=== PATIENT | female | born 1960 | race Caucasian/White ===

== ENCOUNTER → 2022-06-11 | Outpatient (CLI) | payer BC ==
[2022-06-11 15:00] LABS: Basophils # (A) 0.03 X 10*3/uL (0.00-0.10); Basophils % (A) 0.7 %; Eosinophils # (A) 0.18 X 10*3/uL (0.04-0.35); Eosinophils % (A) 4.1 %; HCT 44.7 % (37.2-46.3); HGB 14.8 g/dL (12.0-15.0); Immature Grans, Automated 0.2 %; Lymphocytes # (A) 1.39 X 10*3/uL (0.90-5.00); Lymphocytes % (A) 31.3 %; MCH 31.8 pg (27.0-32.0); MCHC 33.1 g/dL (32.0-37.0); MCV 96.1 fL (80.0-97.0); Mean Platelet Volume 10.6 fL (9.5-12.2); Monocytes % (A) 11.3 %; NRBC Per 100 WBC 0 /100 WBCS (0.0-0.0); Neutrophils # (A) 2.33 X 10*3/uL (1.80-7.70); Neutrophils % (A) 52.4 %; Platelet Count 248 X 10*3/uL (140-440); RBC 4.65 X 10*6/uL (4.10-5.20); RDW 13.2 % (11.5-14.5); WBC 4.44 X 10*3/uL (4.50-10.00)
[2022-06-11 19:29] LABS: ALT 17 U/L (8-44); AST 30 U/L (13-35); African American GFR (CKD) 93.3 (60.0-200.0); Albumin/Globulin Ratio 1.75 (1.60-3.17); Alkaline Phosphatase 79 U/L (41-126); BUN/Creat Ratio 15.23 Ratio (12.00-20.00); Calcium 9.9 mg/dL (8.7-10.3); Carbon Dioxide 18.8 mmol/L (20.0-27.5); Chloride 101 mmol/L (96-109); Globulin 2.9 g/dL (1.6-3.3); Glucose 96 mg/dL (70-110); LDL Cholesterol,Calculated 123.9 mg/dL (0.0-131.0); Non-African American GFR(CKD) 80.5 (60.0-200.0); Potassium 4.4 mmol/L (3.5-5.5); Sodium 142 mmol/L (135-145); Total Protein 7.8 g/dL (6.2-8.2); VLDL Calculation 17.14 mg/dL (5.00-40.00)
== END | disposition home or self-care (01) ==
LOC: LABWHC1 09:02
PROVIDERS: ATTEND Family Medicine
DX: Z00.00 Encounter for general adult medical examination without abnormal findings (principal); R53.81 Other malaise
CPT/HCPCS: 36415; 80053; 80061; 82306; 84439; 84443; 84481; 85025

== ENCOUNTER → 2024-04-20 | Outpatient (CLI) | payer BC ==
--- NOTE | 2024-04-26 17:06 | MM ---
Reason for Exam: Screening (asymptomatic). Patient History: Postmenopausal. Risk Values: Marlys 5 year model risk: 1.1%. NCI Lifetime model risk: 4.3%. Tissue Density: The breasts are extremely dense, which lowers the sensitivity of mammography. Findings: Analyzed By CAD. The pattern is symmetrical. There are linear arranged coarse calcifications subareolar left breast. Additional workup with 9 dictation recommended. Right breast:No suspicious groups of microcalcifications, spiculated or lobular masses, architectural distortion or other secondary signs of malignancy are mammographically apparent. Overall Assessment: Incomplete: need additional imaging evaluation, BI-RAD 0 Management: Diagnostic Mammogram of the left breast. A negative mammogram report should not preclude additional follow up of suspicious palpable abnormalities. Patient should continue monthly self breast exam. A clinical breast exam by your physician is recommended on an annual basis and results should be correlated with mammographic findings. Note on Marlys scores and lifetime risk: 1. A Marlys score greater than 3% is considered moderate risk. If this is the case, consider specialist referral to assess eligibility for a risk reducing agent. 2. If overall lifetime risk for the development of breast cancer is 20% or higher, the patient may qualify for future screening with alternating mammogram and breast MRI. Electronically signed and approved by: Chad Madsen D.O. Radiologis
== END | disposition home or self-care (01) ==
LOC: RADMAMWWP 08:50
PROVIDERS: ATTEND Family Medicine
DX: Z12.31 Encounter for screening mammogram for malignant neoplasm of breast (principal); R92.343 Mammographic extreme density, bilateral breasts; Z78.0 Asymptomatic menopausal state
CPT/HCPCS: 77063; 77067

== ENCOUNTER → 2024-04-28 | Outpatient (CLI) | payer BC ==
--- NOTE | 2024-04-28 07:28 | MM ---
Reason for Exam: Additional evaluation requested from abnormal screening. Last screening mammogram was performed less than 1 month ago. Patient History: Postmenopausal. Risk Values: Marlys 5 year model risk: 1.1%. NCI Lifetime model risk: 4.3%. Prior Study Comparison: 04/20/2024 Bilateral MG 3D screening mammo w/cad, [facility]. Tissue Density: Left: The breasts are extremely dense, which lowers the sensitivity of mammography. Findings: Analyzed By CAD. Magnification views were obtained of the anterior left breast calcifications. These are heterogenous in the segmental herniation. Findings are suspicious. Stereotactic core biopsy recommended. Overall Assessment: Suspicious, BI-RAD 4 Management: Stereotactic Core Biopsy of the left breast. A negative mammogram report should not preclude additional follow up of suspicious palpable abnormalities. Patient should continue monthly self breast exam. A clinical breast exam by your physician is recommended on an annual basis and results should be correlated with mammographic findings. Note on Marlys scores and lifetime risk: 1. A Marlys score greater than 3% is considered moderate risk. If this is the case, consider specialist referral to assess eligibility for a risk reducing agent. 2. If overall lifetime risk for the development of breast cancer is 20% or higher, the patient may qualify for future screening with alternating mammogram and breast MRI. Electronically signed and approved by: Chad Madsen D.O. Radiologis
== END | disposition home or self-care (01) ==
LOC: RADMAMWWP 06:58
PROVIDERS: ATTEND Family Medicine
DX: R92.8 Other abnormal and inconclusive findings on diagnostic imaging of breast (principal); R92.342 Mammographic extreme density, left breast; Z78.0 Asymptomatic menopausal state
CPT/HCPCS: 77061; 77065

== ENCOUNTER → 2024-05-05 | Day surgery (SDC) | payer BC ==
[~2024-05-05] MED LIST: ALPRAZolam 0.25 MG TAB PO PRN
[2024-05-05] MEDS: ALPRAZolam 0.5 MG TAB PO PRN (10:13)
[2024-05-05 10:22] VITALS: RESP 16
[2024-05-05 11:23] VITALS: BP 155/83; PULSE 89; TEMP 98.2
--- NOTE | 2024-06-08 08:33 | MM ---
Risk Values: Marlys 5 year model risk: 1.1%. NCI Lifetime model risk: 4.3%. Prior Study Comparison: 04/20/2024 Bilateral MG 3D screening mammo w/cad, [facility]. 04/28/2024 Left MG 3D work up w/cad , [facility]. Pathology Description: Marker Left Behind. Specimen Radiograph. Calcium Found: Yes Approach: CC FA Needle Type: Eviva Cores: 7 Skin Nicks: 1 Gauge: 9 no problems The microcalcifications in question within the left retroareolar breast were targeted by the undersigned. Procedure was performed by the undersigned. Informed consent was obtained and all of the patients questions were answered. The standard sterile technique was utilized and appropriate local anesthesia was obtained with 1% lidocaine. Mammotome probe was advanced and multiple core samples were obtained and sent to pathology for interpretation. Microclip marker was deployed at the site of biopsy. Post procedural mammogram demonstrates appropriate deployment of radiopaque clip marker. The patient tolerated the procedure well and left the department in stable condition. Pathology results are pending. Impression: Successful stereotactic core biopsy left breast. Pathology Results: Result: Malignant, Invasive ductal carcinoma. Pathology and radiology were reviewed. Findings are concordant. LEFT BREAST, STEREOTACTIC CORE BIOPSY: Rare focus of microinvasive ductal carcinoma with adjacent fibrosis and microcalcification (see Surgical Pathology Cancer Case Summary and comment). Overall Assessment: Malignant Management: Surgical Consultation of the left breast. Electronically signed and approved by: Abdoulaye Karimi M.D. Radiologis
== END ==
LOC: RADMAMWWP 09:58
PROVIDERS: ATTEND Family Medicine
DX: R92.8 Other abnormal and inconclusive findings on diagnostic imaging of breast
CPT/HCPCS: 88305; 88342; 19081; A4648; J2001; 88341

== ENCOUNTER 2024-06-06 07:17 | Day surgery (SDC) | payer BC ==
[2024-06-06] MEDS: ALPRAZolam 0.25 MG TAB PO PRN (07:59)
[2024-06-06] MEDS: IV FLUID CONTINUATION 1,000 ML IV ONE (08:00)
[2024-06-06] MEDS: LACTATED RINGERS 1,000 ML BAG IV STA (08:08)
[2024-06-06] MEDS: LIDOCAINE 1% INJ 10MG/ML (20 ML MDV) SQ ONE (08:58)
--- NOTE | 2024-06-06 10:39 | P.NAPBC ---
NAPBC Queries - NAPBC Queries Was patient's case review presented at [facility] tumor board? If no, comment.: No (Unable to provide tumor board because of system being down) Was patient's pathology reviewed at [facility]? If no, comment.: Yes Was breast conservation surgery offered? If no, comment.: Yes Was sentinel node biopsy offered? If no, comment.: Yes Was diagnosis confirmed by percutaneous core biopsy? If no, comment.: Yes Is patient mastectomy patient?: No Was a preop referral to reconstructive surgeon offered?: Yes Clinical Stage: 1a
[2024-06-06] MEDS: ONDANSETRON 4 MG/2 ML VIAL IVP STA (12:14)
[2024-06-06] MEDS: MIDAZOLAM 2 MG/2 ML VIAL IV ONE (12:14)
[2024-06-06] MEDS: DEXAMETHASONE SOD PHOSPHATE 4 MG/ML 1 ML VIAL IVP STA (12:15)
[2024-06-06] MEDS: HEPARIN SODIUM,PORCINE 5,000 UNIT/ML 1 ML VIAL SQ STA (12:35)
[2024-06-06] MEDS ORDERED: PHENYLEPHRINE-0.9% NACL SYG 1,000 MCG/10 ML SYRINGE ONE (12:41)
[2024-06-06] MEDS ORDERED: MIDAZOLAM 2 MG/2 ML VIAL ONE (12:41)
[2024-06-06] MEDS ORDERED: fentaNYL (PF) 50 MCG/ML 2 ML AMP ONE (12:41)
[2024-06-06] MEDS ORDERED: LIDOCAINE 1% INJ 10MG/ML (20 ML MDV) ONE (12:41)
[2024-06-06] MEDS ORDERED: GLYCOPYRROLATE 0.2 MG/ML 2 ML VIAL ONE (12:41)
[2024-06-06] MEDS ORDERED: PROPOFOL 10 MG/ML 20 ML VIAL IV ONE (12:41)
[2024-06-06] MEDS ORDERED: SUCCINYLCHOLINE CHLORIDE 200 MG/10 ML VIAL IV ONE (12:41)
--- NOTE | 2024-06-06 13:23 | NM ---
EXAMINATION TYPE: NM sentinel node injection DATE OF EXAM: 06/06/2024 COMPARISON: NONE CLINICAL INDICATION: Female, 63 years old with history of LEFT BREAST CA; TECHNIQUE AND FINDINGS: The procedure of sentinel lymph node injection was explained to the patient. The benefits, alternatives, and risks were discussed. An informed consent was then obtained. Overlying skin is cleaned with sterile alcohol. Following this, 465 uCi Tc99m Tilmanocept was inject ed in the upper outer aspect of the left nipple intradermally. The patient tolerated the procedure well without any immediate complication. The patient was kept in the radiology department for short stay after the procedure and then taken to surgery for surgical p rocedure what is presumed intraoperative gamma probe will be used for sentinel lymph node detection. IMPRESSION: Left breast radiotracer injection for sentinel node localization as above.
[2024-06-06] MEDS: METHYLENE BLUE 50 MG/10 ML AMPUL MISCELLANE ONE (13:30)
[2024-06-06] MEDS: LACTATED RINGERS 1,000 ML IV ONE (13:37)
[2024-06-06] MEDS: BUPIVACAINE (PF) 0.25% 30 ML VIAL SQ ONE (13:45)
--- NOTE | 2024-06-06 14:20 | P.OP ---
Date of Procedure: 06/06/24 Procedure(s) Performed: PREOPERATIVE DIAGNOSIS: Left breast cancer POSTOPERATIVE DIAGNOSIS: Same PROCEDURE: Left breast wire localization lumpectomy with sentinel lymph node biopsy SURGEON: Christy EBL: Minimal ANESTHESIA: General COMPLICATIONS: None OPERATIVE PROCEDURE: Patient was placed on the operating room table in the supine position. 2 mL of methylene blue was injected into the subareolar space. The breast was then massaged for 5 minutes. The breast was prepped and draped in usual sterile fashion. The left axilla was addressed at that time. The hot spot in the right axilla was identified. A small curvilinear incision was made using the scalpel. Dissection down through the subcutaneous tissues took place using electrocautery. Using the neoprobe I identified a total of 2 sentinel lymph nodes. 1 of these was blue in color. These had benign exam characteristics. These were both removed and sent to pathology for permanent sectioning. The surgical site was inspected and no bleeding was seen. The subcutaneous tissues were closed using 3-0 Vicryl sutures. The skin was closed using 4-0 Monocryl sutures. The wire entrance site was then addressed. This was present at the 3:00 location. A curvilinear incision was made encompassing the nipple areolar complex. The wire was brought into the surgical field by dissecting the laterally until the wire was encountered. I then performed a central lumpectomy with our wire approximately 1 cm from the posterior margin. The specimen was then painted the appropriate 5 colors. Anteriorly the nipple areolar complex was present. Clips were used to identify the lumpectomy cavity. The clip was confirmed to be within the lumpectomy specimen by radiology. The subcutaneous tissues were closed using 3-0 Vicryl sutures. The skin was closed using a running 4-0 Monocryl stitch. Skin glue was then applied. DISPOSITION: Stable to recovery room
[2024-06-06 14:22] VITALS: TEMP 97.3
[2024-06-06 15:05] VITALS: RESP 20
[2024-06-06 16:29] VITALS: BP 144/80; PULSE 78
[2024-06-06] MEDS ORDERED: ACETAMINOPHEN TAB 325 MG TAB PO SCH (18:00)
[2024-06-08] MEDS ORDERED: MELOXICAM 7.5 MG TAB PO SCH (09:00)
--- NOTE | 2024-06-22 11:41 | MM ---
Pathology Description: The procedure of needle localization with wire placement and than surgical excision was explained to the patient. Benefits, alternatives, and risks were discussed. An informed consent was then obtained. The subareolar left breast calcifications at the site of biopsy-proven minimally invasive cancer is identified. Calcifications extend to the nipple. We were instructed to place the wire to delineate the posterior margin. A lateral approach was chosen. The overlying skin was prepped and draped in usual sterile fashion. Lidocaine was used as anesthetic into the skin and subcutaneous tissue up to the level of area of concern. A 7 cm Kopan's needle was used. It was placed via a lateral approach under mammographic guidance. Subsequent 90 degrees mammogram show the needle to be in satisfactory position relative to the targeted area. At this point, wire was placed and the needle was withdrawn. The wire was fixed to patient's skin. Images were marked for surgeon. The patient tolerated the procedure well without any immediate complication. The patient was kept in the radiology department for short stay after the procedure and then taken to surgery for surgical excision. Targeted calcifications, biopsy clip, and wire are identified in specimen mammogram. The patient was kept in hospital for short stay after the procedure and then discharged home in stable condition. IMPRESSION: Successful, uncomplicated needle localization with wire placement and surgical excision of suspicious group of calcifications in the subareolar left breast, full pathology results to follow. Pathology Results: Result: Malignant, Ductal carcinoma in situ, comedo type. Pathology and radiology were reviewed. Findings are concordant. A. LEFT AXILLARY SENTINEL LYMPH NODES, DISSECTION: 2 lymph nodes, each negative for metastatic carcinoma. CK7 on block A1 and YAMILA staining on block A2, each with appropriate controls, all negative for metastatic carcinoma. B. 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 Sections examined negative for invasive carcinoma. Focal atypical lobular hyperplasia present. All margins negative for in situ carcinoma. See surgical pathology cancer case summary and comment. Overall Assessment: Malignant Management: Surgical Consultation of the left breast. Electronically signed and approved by: Marti Slater M.D. Radiologist
== END 2024-06-06 16:34 | disposition home or self-care (01) ==
LOC: OR 07:17
PROVIDERS: ATTEND Surgery
DX: C50.912 Malignant neoplasm of unspecified site of left female breast
CPT/HCPCS: 38792; 76098; 88307; 88341; 88342

== ENCOUNTER → 2024-09-01 | Outpatient (CLI) | payer BC ==
--- NOTE | 2024-09-01 20:58 | BD ---
EXAMINATION TYPE: Axial Bone Density DATE OF EXAM: 09/01/2024 CLINICAL HISTORY: 63 years old Female. ICD-10 CODE: M81.0 Osteopenia , Additional History: Height: 60 Weight: 105 FRAX RISK QUESTIONS: Family History (Parent hip fracture): no History of Fracture in Adulthood: no Secondary Osteoporosis: no RISK FACTORS HISTORY OF: Surgery to Spine/Hip(right/left)/Wrist (right/left): no MEDICATIONS: Thyroid Medications: no Osteoporosis Medications: no EXAM MEASUREMENTS: Bone mineral densitometry was performed using the [employer] System. Bone mineral density as measured about the Lumbar spine is: ----- L1-L4(G/cm2): 0.824 T Score Values are as follows: ----- L1: -3.3 ----- L2: -3.5 ----- L3: -2.9 ----- L4: -2.5 ----- L1-L4: -3.0 Z Score Values are as follows: ----- L1: -1.2 ----- L2: -1.3 ----- L3: -0.8 ----- L4: -0.4 ----- L1-L4: -0.8 Bone mineral density baseline Bone mineral density about the R hip (g/cm2): 0.791 Bone mineral density about the L hip (g/cm2): 0.771 T Score values are as follows: -----R Neck: -2.3 -----L Neck: -2.5 -----R Total: -1.7 -----L Total: -1.9 Z Score values are as follows: -----R Neck: -0.5 -----L Neck: -0.7 -----R Total: -0.1 -----L Total: -0.3 Bone mineral density baseline FRAX%s: The graph provided illustrates a 11.7% chance for a major osteoporotic fx and a 2.6% chance f or the hips probability for fx in 10 years time. IMPRESSION: Osteoporosis (T Score less than -2.5). There is increased fracture risk and therapy is usually indicated based on age. Re-Screen 1-2 years. NOTE: T-SCORE=SD OF THE YOUNG ADULT MEAN. [facility], , 09/01/2024 8:56 PM
== END | disposition home or self-care (01) ==
LOC: RADBDWWP 16:07
PROVIDERS: ATTEND Internal Medicine Hematology & Oncology
DX: C50.112 Malignant neoplasm of central portion of left female breast (principal); M81.0 Age-related osteoporosis without current pathological fracture
CPT/HCPCS: 77080

== ENCOUNTER → 2025-04-21 | Outpatient (CLI) | payer BC ==
--- NOTE | 2025-04-21 11:29 | MM ---
Reason for Exam: Follow-up at short interval from prior study. Last screening mammogram was performed 12 month(s) ago. Patient History: Postmenopausal. Breast cancer, left, age 63. 06/06/2024, Lumpectomy on the Left side. 06/06/2024, Malignant MG pre op needle loc LT on the left side. 05/05/2024, Malignant MG stereo VAD BX LT on the left side. 2023, Radiation Therapy on the left side. Tissue Density: The breasts are heterogeneously dense, which may obscure small masses. Findings: Analyzed By CAD. New surgical changes in the left breast with distortion. Subtle asymmetry along the posterior aspect of the surgical clips on MLO view is presumed developing new baseline. No obvious new group of microcalcifications in either breast. Overall Assessment: Probably benign, BI-RAD 3 Management: Diagnostic Mammogram of the left breast in 6 months. Precautionary short-term follow-up mammogram left breast as establishing new baseline. Results were given to the patient verbally at the time of exam. Patient should continue monthly self-breast exams. A clinical breast exam by your physician is recommended on an annual basis. This exam should not preclude additional follow-up of suspicious palpable abnormalities. Note on Marlys scores and lifetime risk: 1. A Marlys score greater than 3% is considered moderate risk. If this is the case, consider specialist referral to assess eligibility for a risk reducing agent. 2. If overall lifetime risk for the development of breast cancer is 20% or higher, the patient may qualify for future screening with alternating mammogram and breast MRI. [facility], , 04/21/2025 11:26 AM. Electronically signed and approved by: Hamzah Price M.D.
== END | disposition home or self-care (01) ==
LOC: RADMAMWWP 10:46
PROVIDERS: ATTEND Surgery
DX: R92.333 Mammographic heterogeneous density, bilateral breasts (principal); Z78.0 Asymptomatic menopausal state
CPT/HCPCS: 77062; 77066